=== PATIENT | male | born 1935 | race Caucasian/White ===

== ENCOUNTER 2022-04-29 19:03 | Emergency (ER) | payer MEDICARE ==
[~2022-04-29] VITALS: Ht 172.7 cm; Wt 66.0 kg
[~2022-04-29 19:03] MED LIST: MEMA10TA11 PO
[2022-04-29] MEDS ORDERED: ACETAMINOPHEN 325 MG TABLET PO ONE (22:45)
[2022-04-30] MEDS ORDERED: HydrOXYzine PAMOATE 25 MG CAPSULE PO ONE (00:15)
[2022-04-30 12:10] VITALS: BP 115/74
== END 2022-04-30 12:25 | disposition home or self-care (01) ==
LOC: EMS 19:03
DX: M70.42 Prepatellar bursitis, left knee (principal); F17.210 Nicotine dependence, cigarettes, uncomplicated; F03.90 Unspecified dementia, unspecified severity, without behavioral disturbance, psychotic disturbance, mood disturbance, and anxiety; Y93.89 Activity, other specified
CPT/HCPCS: 99285; 73562-TC; Z7502; Z7610